=== PATIENT | female | born 1935 | race Caucasian/White ===

== ENCOUNTER 2016-07-20 11:43 | Emergency (ER) | payer MEDICARE, BC ==
[2016-07-20] MEDS ORDERED: SODIUM CHLORIDE 0.9% 1,000 ML ONE (14:16)
[2016-07-20] MEDS ORDERED: KCL CR 20 MEQ TAB PO ONE (15:43)
[2016-07-20] MEDS ORDERED: KCL 20 MEQ PACK ONE (15:57)
== END 2016-07-20 17:52 | disposition home or self-care (01) ==
LOC: ER 11:43
DX: I10 Essential (primary) hypertension (principal); K21.9 Gastro-esophageal reflux disease without esophagitis; I34.1 Nonrheumatic mitral (valve) prolapse; Z86.718 Personal history of other venous thrombosis and embolism; Z86.711 Personal history of pulmonary embolism; Z79.02 Long term (current) use of antithrombotics/antiplatelets; Z95.0 Presence of cardiac pacemaker
CPT/HCPCS: 36415; 80053; 85025; 96361; 96374